=== PATIENT | male | born 1970 | race Caucasian/White ===

== ENCOUNTER 2020-09-26 19:54 | Emergency (ER) | payer SELFPAY ==
[2020-09-26 20:33] LABS: HEMOGLOBIN 13.6 gm/dl (14.0-17.5); RED BLOOD COUNT 3.99 M/UL (4.20-5.50); WHITE BLOOD COUNT 6.7 K/UL (4.5-11.0)
[2020-09-26 20:47] LABS: BUN/CREATININE RATIO 12 (0-10)
== END 2020-09-26 23:22 | disposition short-term general hospital (02) ==
LOC: ER1 19:54
PROVIDERS: Family Medicine
DX: R20.0 Anesthesia of skin (principal); M54.6 Pain in thoracic spine
CPT/HCPCS: 70450; 71260; 72125; 72128; 72131; 80053; 80307; 81001; 82550; 82553; 84484; 85025; 85610; 96374; 96375; 99284; G0480; J2270; J2405; Q9967